=== PATIENT | female | born 1945 | race Caucasian/White ===

== ENCOUNTER 2022-02-19 09:23 | Observation (INO) ==
[2022-02-19 10:15] LABS: Basophils # 0.1 10*3/uL (0.0-0.2); Basophils % 0.9 % (0.0-0.8); Eosinophils # 0.3 10*3/uL (0.0-0.87); Eosinophils % 3.3 % (0.00-10.9); Hematocrit 38.2 VOL% (35.7-47.0); Hemoglobin 12.9 GM/DL (12.0-16.0); Immature Granulocytes % 0.8 %; Immature Granulocytes Absolute 0.07 #; Lymphocytes # 1.6 10*3/uL (1.4-4.0); Lymphocytes % 18.8 % (21.3-54.2); Mean Corpuscular HGB Conc 33.8 GM/DL (32-36); Mean Corpuscular Volume 88.4 FL (87-102); Mean Platelet Volume 10.2 FL (9.6-12.0); Monocytes # 0.5 10*3/uL (0.11-0.8); Monocytes % 6.3 % (1.7-12.7); Neutrophils % 69.9 % (38.7-73.9); Platelet Count 330 T/CUMM (130-400); Red Blood Count 4.32 MC/CUMM (3.8-5.5); Red Cell Distribution Width 12.8 % (9.3-17.3); White Blood Count 8.6 T/CUMM (4-12)
[2022-02-19 10:38] LABS: Bilirubin,Urine Negative (Negative); Blood, Urine Negative (Negative); Glucose,Urine (UA) Negative (Negative); Ketones,Urine Negative (Negative); Nitrite,Urine Negative (Negative); Protein,Urine Negative (Negative); RBC,Urine <1 /HPF (0-4); Urine Appearance Clear (Clear); Urine Color Yellow (Yellow); Urine Specific Gravity 1.015 (1.001-1.035); Urine Urobilinogen 0.2 eU/dL (<2.0)
[2022-02-19 10:38] LABS: Alanine Aminotransferase 36 U/L (13-56); Albumin 3.5 G/DL (3.4-5.0); Alkaline Phosphatase 91 U/L (45-117); Aspartate Amino Transferase 28 U/L (0-37); Blood Urea Nitrogen 13 MG/DL (7-18); Calcium 9.5 MG/DL (8.5-10.1); Carbon Dioxide 29 MMOL/L (21-32); Chloride 101 MMOL/L (98-107); Glucose 102 MG/DL (74-106); Osmolality,Calculated 269.1 MOS/KG (273-304); PT Patient Result 10.9 SECS (10.5-12.0); Partial Thromboplastin Time 25.1 SECS (23.7-32.9); Potassium 3.4 MMOL/L (3.5-5.1); Sodium 135 MMOL/L (136-145); Total Protein 7.2 G/DL (6.4-8.2)
[2022-02-19 10:43] LABS: Risk Ratio 3.13
[2022-02-19 10:43] LABS: Barbiturates Screen,Urine Negative (Negative); Benzodiazepines Screen,Urine Negative (Negative); Cannabinoid Screen,Urine Negative (Negative); Opiate Screen,Urine Negative (Negative); Phencyclidine Screen,Urine Negative (Negative)
[2022-02-19] MEDS ORDERED: LORazepam 2 MG/1 ML VIAL IV STA (11:12)
[2022-02-19] MEDS ORDERED: DIAZEPAM 5 MG TABLET ONE (11:13)
[2022-02-19] MEDS ORDERED: ONDANSETRON 4 MG/2 ML VIAL IV PRN (11:17)
[2022-02-19] MEDS ORDERED: ACETAMINOPHEN 325 MG TABLET PO PRN (11:17)
[2022-02-19] MEDS ORDERED: hydrALAZINE 20 MG/1 ML VIAL IV PRN (11:17)
[2022-02-19] MEDS ORDERED: LABETALOL 20 MG/4 ML SYRINGE IV PRN (11:17)
[2022-02-19] MEDS ORDERED: GLUCAGON 1 MG VIAL IM PRN (11:17)
[2022-02-19] MEDS ORDERED: POTASSIUM CHLORIDE 20 MEQ TABLET PO ONE (11:26)
[2022-02-19] MEDS ORDERED: DEXTROSE 10% 250 ML BAG IV PRN (11:32)
[2022-02-19] MEDS ORDERED: DIAZEPAM 5 MG TABLET PO STA (12:06)
[2022-02-19] MEDS: METOPROLOL SUCCINATE XL 25 MG TABLET PO SCH (15:36)
[2022-02-19] MEDS: LEVOTHYROXINE 50 MCG TABLET PO SCH (15:37)
[2022-02-19] MEDS ORDERED: LATANOPROST 0.005% OPH SOLN 2.5 ML BOTTLE BOTH EYES SCH (21:00)
[2022-02-19] MEDS ORDERED: ENOXAPARIN 40 MG/0.4 ML SYRINGE SUBCUT SCH (21:00)
[2022-02-19] MEDS: TIMOLOL 0.5% OPH SOLN 5 ML BOTTLE BOTH EYES SCH (22:24)
[2022-02-20 04:21] LABS: Basophils # 0.1 10*3/uL (0.0-0.2); Basophils % 0.9 % (0.0-0.8); Eosinophils # 0.3 10*3/uL (0.0-0.87); Eosinophils % 3.8 % (0.00-10.9); Hematocrit 37.6 VOL% (35.7-47.0); Hemoglobin 12.5 GM/DL (12.0-16.0); Immature Granulocytes % 0.6 %; Immature Granulocytes Absolute 0.05 #; Lymphocytes # 2.3 10*3/uL (1.4-4.0); Lymphocytes % 27.1 % (21.3-54.2); Mean Corpuscular HGB Conc 33.2 GM/DL (32-36); Mean Corpuscular Volume 88.5 FL (87-102); Mean Platelet Volume 10.3 FL (9.6-12.0); Monocytes # 0.8 10*3/uL (0.11-0.8); Monocytes % 9.3 % (1.7-12.7); Neutrophils % 58.3 % (38.7-73.9); Platelet Count 308 T/CUMM (130-400); Red Blood Count 4.25 MC/CUMM (3.8-5.5); White Blood Count 8.6 T/CUMM (4-12)
[2022-02-20 04:56] LABS: Calcium 9.3 MG/DL (8.5-10.1); Thyroid Stimulating Hormone 2.02 uIU/ml (0.358-3.74)
[2022-02-20] MEDS: LEVOTHYROXINE 50 MCG TABLET PO SCH (05:42)
[2022-02-20 07:18] VITALS: BP 167/80
[2022-02-20] MEDS: TIMOLOL 0.5% OPH SOLN 5 ML BOTTLE BOTH EYES SCH (08:27)
[2022-02-20] MEDS: METOPROLOL SUCCINATE XL 25 MG TABLET PO SCH (08:27)
[2022-02-20] MEDS ORDERED: ASPIRIN 325 MG TABLET PO SCH (09:00)
[2022-02-20] MEDS ORDERED: PANTOPRAZOLE 40 MG TABLET PO SCH (09:00)
[2022-02-20] MEDS ORDERED: ASPIRIN EC 81 MG TABLET PO SCH (09:00)
[2022-02-20] MEDS ORDERED: LOSARTAN 50 MG TABLET PO SCH (09:00)
[2022-02-20] MEDS ORDERED: hydroCHLOROthiazide 25 MG TABLET PO SCH (09:00)
== END 2022-02-20 10:29 | disposition home or self-care (01) ==
LOC: N.ED 09:23 → N.TELES 09:23
PROVIDERS: ADMIT Internal Medicine; ATTEND Internal Medicine